=== PATIENT | male | born 1955 | race Caucasian/White ===

== ENCOUNTER → 2020-05-10 14:22 | Outpatient (BNVA) | payer BC, SELFPAY | PROVIDERS: Visit Provider Urology | DX: Z76.89 Persons encountering health services in other specified circumstances (principal) ==

== ENCOUNTER → 2020-08-08 15:37 | Outpatient (BNVA) | payer BC, SELFPAY | PROVIDERS: PCP Internal Medicine; Visit Provider Urology ==

== ENCOUNTER → 2021-02-15 14:27 | Outpatient (BNVA) | payer BC, SELFPAY | PROVIDERS: PCP Internal Medicine; Visit Provider Urology ==

== ENCOUNTER → 2021-05-15 14:41 | Outpatient (BNVA) | payer MEDICARE, SELFPAY | PROVIDERS: PCP Internal Medicine; Visit Provider Urology | DX: C61 Malignant neoplasm of prostate (principal) | CPT/HCPCS: Q3014 ==

== ENCOUNTER → 2021-08-20 13:05 | Outpatient (BNVA) | payer MEDICARE, SELFPAY | PROVIDERS: PCP Internal Medicine; Visit Provider Urology | DX: C61 Malignant neoplasm of prostate (principal); N20.0 Calculus of kidney | CPT/HCPCS: Q3014 ==

== ENCOUNTER → 2021-11-22 09:05 | Outpatient (BNVA) | payer MEDICARE, SELFPAY | PROVIDERS: PCP Internal Medicine; Visit Provider Urology | DX: C61 Malignant neoplasm of prostate (principal); Z87.442 Personal history of urinary calculi | CPT/HCPCS: 99212 ==

== ENCOUNTER → 2021-12-24 09:46 | Outpatient (BNVA) | payer MEDICARE, SELFPAY | PROVIDERS: PCP Internal Medicine; Visit Provider Urology | DX: C61 Malignant neoplasm of prostate (principal); N20.0 Calculus of kidney | CPT/HCPCS: Q3014 ==

== ENCOUNTER → 2021-12-25 13:55 | Outpatient (BNVA) | payer MEDICARE, SELFPAY | PROVIDERS: PCP Internal Medicine; Visit Provider Urology | DX: C61 Malignant neoplasm of prostate (principal) | CPT/HCPCS: 96402; J9217 ==

== ENCOUNTER → 2022-04-01 09:10 | Outpatient (BNVA) | payer MEDICARE, SELFPAY | PROVIDERS: PCP Internal Medicine; Visit Provider Urology | DX: C61 Malignant neoplasm of prostate (principal); R97.21 Rising PSA following treatment for malignant neoplasm of prostate | CPT/HCPCS: 51798; 99212 ==

== ENCOUNTER → 2022-07-03 10:10 | Outpatient (BNVA) | payer MEDICARE, SELFPAY | PROVIDERS: PCP Internal Medicine; Visit Provider Urology | DX: C61 Malignant neoplasm of prostate (principal); R97.21 Rising PSA following treatment for malignant neoplasm of prostate | CPT/HCPCS: Q3014 ==

== ENCOUNTER 2022-10-07 12:56 | Outpatient (AMB) | payer MEDICARE, SELFPAY ==
--- NOTE | 2022-10-07 13:01 | MHC.OFFVIS ---
Intake Intake Visit Reasons: 3M PSA/Testosterone(set) Intake Note: Patient is present for LABS Results: 09/23/22 PSA: <0.1 Testosterone: 32 Urology Med: Dutasteride Antibiotic Allergy: Penicillin G Blood Thinner: None Allergies penicillin G Allergy (Unknown, Verified 01/08/23 11:25) Unknown HPI HPI Comments History of Present Illness Details Marcelo is a very pleasant male. He is a patient of Dr. Espitia. He is seen for the following urologic conditions - prostate cancer - nephrolithiasis Lab work remains well controlled Completed salvage radiation with short-term hormones T is still recovering Continue PSA surveillance 10/14 PSA 0.1 T 32 Prostate cancer: Locally invasive, intermediate risk 07/13 RALP, PSA failure 12/2021 XRT with GnRH Rising PSA 01/13 GnRH with salvage XRT and dutasteride throughout radiation Imaging - 12/13 PMSA scan. Nodes but no disease within prostate bed Treatment 2000 Gy prostate bed, 4600 [facility] Continue evaluation pT3a pathology with micrometastatic node Genetic testing favorable - Polaris Able to get functional erection without medications. Prostate cancer was diagnosed Dr House 11/09 Diagnosis was reached by 11/09 needle biopsy, for elevated PSA, PSA at diagnosis 6.2, size at TRUS 75gm. The [place] grade is October 2017 4/12 cores positive - left base, left mid gland - 60% 4+3 = 7, 70% 3+4 = 7, 40% right apex , 3+3 = 6, 3+3 = 6. TNM Classification of Malignant Tumours (TNM) T1c - Intermediate risk, localized - Group 3 Surgical - [id number] Group 3. The D'Cara (NCCN) risk category is 11/09 , Intermediate Risk (PSA 10-20, Gl 7, T2), localized, Group 3 Initial therapy included 07/13 Primary treatment, Prostatectomy (RRP/Robotic) Dr Tamayo - [facility]. Recent labs included 03/11 , a PSA (prostate-specific antigen) 2.2 01/10 < 0.1, 05/12 < 0.1 07/14 < 0.1, 10/11 < 0.1, 01/11 < 0.1, 07/15 <0.1, 02/12 0.1, 05/14 0.2, 08/13 0.2, 11/13 0.3 Imaging - 12/13 PMSA scan. Nodes but no disease within prostate bed Nephrolithiasis/Urolithiasis: Stable No stones on imaging. They are here for further evaluation of nephrolithiasis Urolithiasis was diagnosed 2009 The patient previously had kidney stones whose composition w 08/10 left antegrade ureteroscopy with laser lithotripsy. Laboratory investigations include no recent labs 24 Hour urine evaluation none on file. Prior treatment(s) include 08/10 Antegrade Ureteroscopy. Prior imaging includes 09/10 , a renal ultrasound, showing no evidence of stones, bilateral cysts multiple sizes 08/11 , a renal ultrasound question small stone, bilateral renal cysts up to 5 cm PFSH Medical History Erectile dysfunction after radical prostatectomy High cholesterol Nocturia Prostate cancer Weak urinary stream Surgical History History of surgery Review of Systems Const Denies chills and Denies fever(s) Card Reports no additional complaints and Denies syncope Resp Denies cough GI Denies abdominal pain and Denies heartburn Reports as per HPI and Denies change in libido Neuro Denies syncope Psych Denies change in libido Endo Denies change in libido Physical Exam Const General: cooperative, healthy appearing, comfortable and no acute distress Orientation/consciousness: patient oriented x3 HEENT Face and sinus: Yes normal facial exam Mouth: moist mucous membranes Neck Neck: Yes normal visual inspection, Yes full ROM and Yes trachea midline Chest Chest palpation & inspection: normal inspection of the chest Resp Effort & Inspection: normal respiratory effort, able to speak in complete sentences and no respiratory distress GI Inspection: Yes normal to inspection Back/Spine/Pelvis Cervical Spine: normal cervical lordosis Thoracic/Lumbar Spine: thoracic and lumbar spine normal to inspection Skin General skin exam: no rashes or lesions noted Neuro General: patient oriented x3, gait normal, tone normal and moves all extremities Extrem General: Yes normal to inspection and Yes capillary refill normal Assessment & Plan Assessment & Plan (1) Rising PSA following treatment for malignant neoplasm of prostate: Code(s): R97.21 - Rising PSA following treatment for malignant neoplasm of prostate (2) Prostate cancer: Comment: Unfavorable intermediate. Initial therapy robotic prostatectomy 07/13 Code(s): C61 - Malignant neoplasm of prostate (3) Nephrolithiasis: Code(s): N20.0 - Calculus of kidney Plan Continue surveillance Orders: Orders Prostate Specific Antigen 3 Months R97.21 - Rising PSA following treatment for malignant neoplasm of prostate Testosterone, Total 3 Months R97.21 - Rising PSA following treatment for malignant neoplasm of prostate Patient Instructions: Imaging studies, laboratory and physical exam results were discussed and reviewed in detail. No major barriers to patient understanding were identified. An opportunity to ask questions regarding the treatment plan was provided. All questions were answered. The patient expressed understanding and agreement with the above treatment plan. The patient is aware they should contact our office by phone for worsening of their current condition or the appearance of new urologic symptoms. Compliance is encouraged with any medications and followup testing that is ordered. It is a privilege to participate in the urologic care of your patient. If you have any questions or concerns regarding treatment for the above conditions, or other urologic issues, please do not hesitate to contact me. The office telephone contact is [phone]. This note is constructed using voice recognition software. While every effort has been made to ensure accuracy web content & social media manager errors may have been included. Yours sincerely, Dr Bong House MD, [facility] - Urology Providers of Expert, Compassionate Care for the Genitourinary System Coding Level of Care Code Est Pt Level 3 (93804) Diagnoses Rising PSA following treatment for malignant neoplasm of prostate R97.21 Prostate cancer C61 Nephrolithiasis N20.0
== END 2022-10-07 13:47 | disposition home or self-care (01) ==
LOC: HO.HUSH 12:56
PROVIDERS: PCP Internal Medicine; Visit Provider Urology
DX: R97.21 Rising PSA following treatment for malignant neoplasm of prostate (principal); C61 Malignant neoplasm of prostate; N20.0 Calculus of kidney
CPT/HCPCS: 99213

== ENCOUNTER → 2022-10-07 12:56 | Outpatient (BNVA) | payer MEDICARE, SELFPAY | PROVIDERS: PCP Internal Medicine; Visit Provider Urology | DX: R97.21 Rising PSA following treatment for malignant neoplasm of prostate (principal); N20.0 Calculus of kidney; C61 Malignant neoplasm of prostate | CPT/HCPCS: 99212 ==

== ENCOUNTER 2023-01-08 11:24 | Outpatient (AMB) | payer MEDICARE, SELFPAY ==
--- NOTE | 2023-01-08 11:25 | A.OFFVIS_ITS ---
Intake Intake Visit Reasons: 3M PSA/Testo(SET) Intake Note: Patient is present for Telephone labs Urology Med: Dutasteride Antibiotic Allergy: Penicillin Blood Thinner: None Pharmacy: [facility] Allergies penicillin G Allergy (Unknown, Verified 01/08/23 11:25) Unknown Medication List - Last Reconciled 01/08/23 by Bong House MD amlodipine 5 mg PO DAILY dutasteride 0.5 mg PO DAILY 120 days lisinopril 10 mg PO DAILY simvastatin 20 mg PO BEDTIME HPI HPI Comments History of Present Illness Details Marcelo is a very pleasant male. He is a patient of Dr. Espitia. He is seen for the following urologic conditions - prostate cancer - nephrolithiasis Telemedicine Evaluation 15 min Consultation Doximity Cesar Video attempted PSA remains low. Testosterone fully recovered Continue with 4 month surveillance 10/14 PSA 0.1 T 32, 01/14 <0.1 T491 Prostate cancer: Locally invasive, intermediate risk 07/13 RALP - Early PSA failure 2021 XRT with GnRH Rising PSA 01/13 GnRH with salvage XRT and dutasteride throughout radiation Imaging - 12/13 PMSA scan. Nodes but no disease within prostate bed Treatment 2000 Gy prostate bed, 4600 Gy pelvis - Dr Rosetta David Continue evaluation pT3a pathology with micrometastatic node Genetic testing favorable - Polaris Able to get functional erection without medications. Prostate cancer was diagnosed Dr House 11/09 Diagnosis was reached by 11/09 needle biopsy, for elevated PSA, PSA at diagnosis 6.2, size at TRUS 75gm. The [place] grade is October 201709/03 cores positive - left base, left mid gland - 60% 4+3 = 7, 70% 3+4 = 7, 40% right apex , 3+3 = 6, 3+3 = 6. TNM Classification of Malignant Tumours (TNM) T1c - Intermediate risk, localized - Group 3 Surgical - [id number] Group 3. The D'Cara (NCCN) risk category is 11/09 , Intermediate Risk (PSA 10-20, Gl 7, T2), localized, Group 3. Initial therapy included 07/13 Primary treatment, Prostatectomy (RRP/Robotic) Dr Tamayo - [facility]. Recent labs included 03/11 , a PSA (prostate-specific antigen) 2.2 01/10 < 0.1, 05/12 < 0.1 07/14 < 0.1, 10/11 < 0.1, 01/11 < 0.1 - 07/15 <0.1, 02/12 0.1, 05/14 0.2, 08/13 0.2, 11/13 0.3 Imaging - 12/13 PMSA scan. Nodes but no disease within prostate bed Nephrolithiasis/Urolithiasis: Stable No stones on imaging. They are here for further evaluation of nephrolithiasis Urolithiasis was diagnosed 2009 The patient previously had kidney stones whose composition w 08/10 left antegrade ureteroscopy with laser lithotripsy. Laboratory investigations include no recent labs 24 Hour urine evaluation none on file. Prior treatment(s) include 08/10 Antegrade Ureteroscopy. Prior imaging includes 09/10 , a renal ultrasound, showing no evidence of stones, bilateral cysts multiple sizes 08/11 , a renal ultrasound question small stone, bilateral renal cysts up to 5 [facility] Medical History Erectile dysfunction after radical prostatectomy High cholesterol Nocturia Prostate cancer Weak urinary stream Surgical History History of surgery Review of Systems Const All systems reviewed & are unremarkable except as noted in HPI and below Reports no additional complaints Resp Reports no additional complaints GI Reports no additional complaints Reports as per HPI Musc Reports no additional complaints Physical Exam Telemedicine evaluation Appropriate responses Regular breathing rate and rhythm HEENT Head: Yes normal to inspection Ears: hearing grossly normal bilaterally Eyes General: appearance normal, both eyes and all related structures Neck Neck: Yes normal visual inspection Chest Chest palpation & inspection: normal inspection of the chest Resp Effort & Inspection: normal respiratory effort and able to speak in complete sentences Assessment & Plan Assessment & Plan (1) Prostate cancer: Comment: Unfavorable intermediate. Initial therapy robotic prostatectomy 07/13 Code(s): C61 - Malignant neoplasm of prostate Plan Four month follow-up PSA Orders: Orders Prostate Specific Antigen 4 Months C61 - Malignant neoplasm of prostate Patient Instructions: Imaging studies, laboratory and physical exam results were discussed and reviewed in detail. No major barriers to patient understanding were identified. An opportunity to ask questions regarding the treatment plan was provided. All questions were answered. The patient expressed understanding and agreement with the above treatment plan. The patient is aware they should contact our office by phone for worsening of their current condition or the appearance of new urologic symptoms. Compliance is encouraged with any medications and followup testing that is ordered. It is a privilege to participate in the urologic care of your patient. If you haile ve any questions or concerns regarding treatment for the above conditions, or other urologic issues, please do not hesitate to contact me. The office telephone contact is [phone]. This note is constructed using voice recognition software. While every effort has been made to ensure accuracy sweep press operator errors may have been included. Yours sincerely, Dr Bong House MD, [facility] - Urology Providers of Expert, Compassionate Care for the Genitourinary System Telehealth Telehealth Location of provider rendering services: practice address Location of patient: address on file Patient Identification confirmed using: Name, : Yes Telehealth method: voice only Patient verbally consented to treatment: Yes Patient verbally consented to billing insurance company: Yes Patient informed of any privacy concerns related to visit: Yes Coding Level of Care Code Tele Est Pt Level 3 (00204) Diagnoses Prostate cancer C61
== END 2023-01-08 13:47 | disposition home or self-care (01) ==
LOC: HO.HUSH 11:24
PROVIDERS: PCP Internal Medicine; Visit Provider Urology
DX: C61 Malignant neoplasm of prostate (principal)
CPT/HCPCS: 99442

== ENCOUNTER → 2023-01-08 11:24 | Outpatient (BNVA) | payer MEDICARE, SELFPAY | PROVIDERS: PCP Internal Medicine; Visit Provider Urology ==

== ENCOUNTER 2023-05-13 11:56 | Outpatient (AMB) | payer MEDICARE, SELFPAY ==
--- NOTE | 2023-05-13 11:58 | A.OFFVIS_ITS ---
Intake Intake Visit Reasons: 4m/PSA(SET) Intake Note: Patient is Present for Telephone Follow Up PSA Urology Med: Patient states he is no longer taking Dutasteride Antibiotic Allergy: Penicillin Blood Thinner: None Allergies penicillin G Allergy (Unknown, Verified 05/13/23 12:00) Unknown Medication List - Last Reconciled 05/13/23 by Bong House MD amlodipine 5 mg PO DAILY dutasteride 0.5 mg PO DAILY 120 days lisinopril 40 mg PO DAILY simvastatin 20 mg PO BEDTIME HPI HPI Comments History of Present Illness Details Marcelo is a very pleasant male. He is a patient of Dr. Espitia. He is seen for the following urologic conditions - prostate cancer - nephrolithiasis Telemedicine Evaluation 15 min Consultation Doximity Cesar Video attempted PSA remains low - different lab Continue with 3 month surveillance 10/14 PSA 0.1 T 32, 01/14 <0.1 T491, 05/16 <0.01 Prostate cancer: Locally invasive, intermediate risk 07/13 RALP - Early PSA failure 2021 XRT with GnRH Rising PSA 01/13 GnRH with salvage XRT and dutasteride throughout radiation Imaging - 12/13 PMSA scan. Nodes but no disease within prostate bed Treatment 2000 Gy prostate bed, [facility]00 [facility] Continue evaluation pT3a pathology with micrometastatic node Genetic testing favorable - Polaris Able to get functional erection without medications. Prostate cancer was diagnosed Dr House 11/09 Diagnosis was reached by 11/09 needle biopsy, for elevated PSA, PSA at diagnosis 6.2, size at TRUS 75gm. The [place] grade is October 201709/03 cores positive - left base, left mid gland - 60% 4+3 = 7, 70% 3+4 = 7, 40% right apex , 3+3 = 6, 3+3 = 6. TNM Classification of Malignant Tumours (TNM) T1c - Intermediate risk, localized - Group 3 Surgical - [id number] Group 3. The D'Cara (NCCN) risk category is 11/09 , Intermediate Risk (PSA 10-20, Gl 7, T2), localized, Group 3. Initial therapy included 07/13 Primary treatment, Prostatectomy (RRP/Robotic) Dr Tamayo - [facility]. Recent labs included 03/11 , a PSA (prostate-specific antigen) 2.2 01/10 < 0.1, 05/12 < 0.1 07/14 < 0.1, 10/11 < 0.1, 01/11 < 0.1 - 07/15 <0.1, 02/12 0.1, 05/14 0.2, 08/13 0.2, 11/13 0.3 Imaging - 12/13 PMSA scan. Nodes but no disease within prostate bed Nephrolithiasis/Urolithiasis: Stable No stones on imaging. They are here for further evaluation of nephrolithiasis Urolithiasis was diagnosed 2009 The patient previously had kidney stones whose composition w 08/10 left antegrade ureteroscopy with laser lithotripsy. Laboratory investigations include no recent labs 24 Hour urine evaluation none on file. Prior treatment(s) include 08/10 Antegrade Ureteroscopy. Prior imaging includes 09/10 , a renal ultrasound, showing no evidence of stones, bilateral cysts multiple sizes 08/11 , a renal ultrasound question small stone, bilateral renal cysts up to 5 cm PFSH Medical History Prostate cancer High cholesterol Erectile dysfunction after radical prostatectomy Nocturia Weak urinary stream Surgical History History of surgery Review of Systems Const All systems reviewed & are unremarkable except as noted in HPI and below Reports no additional complaints Resp Reports no additional complaints GI Reports no additional complaints Reports as per HPI Musc Reports no additional complaints Physical Exam Telemedicine evaluation Appropriate responses Regular breathing rate and rhythm HEENT Head: Yes normal to inspection Ears: hearing grossly normal bilaterally Eyes General: appearance normal, both eyes and all related structures Neck Neck: Yes normal visual inspection Chest Chest palpation & inspection: normal inspection of the chest Resp Effort & Inspection: normal respiratory effort and able to speak in complete sentences Assessment & Plan Assessment & Plan (1) Prostate cancer: Comment: Unfavorable intermediate. Initial therapy robotic prostatectomy 07/13 Code(s): C61 - Malignant neoplasm of prostate (2) Rising PSA following treatment for malignant neoplasm of prostate: Code(s): R97.21 - Rising PSA following treatment for malignant neoplasm of prostate Plan 3m f/u PSA Orders: Orders Prostate Specific Antigen 3 Months R97.21 - Rising PSA following treatment for malignant neoplasm of prostate Patient Instructions: Imaging studies, laboratory and physical exam results were discussed and reviewed in detail. No major barriers to patient understanding were identified. An opportunity to ask questions regarding the treatment plan was provided. All questions were answered. The patient expressed understanding and agreement with the above treatment plan. The patient is aware they should contact our office by phone for worsening of their current condition or the appearance of new urologic symptoms. Compliance is encouraged with any medications and followup testing that is ordered. It is a privilege to participate in the urologic care of your patient. If you have any questions or concerns regarding treatment for the above conditions, or other urologic issues, please do not hesitate to contact me. The office telephone contact is [phone]. This note is constructed using voice recognition software. While every effort has been made to ensure accuracy army officer errors may have been included. Yours sincerely, Dr Bong House MD, [facility] - Urology Providers of Expert, Compassionate Care for the Genitourinary System Telehealth Telehealth Location of provider rendering services: practice address Location of patient: address on file Patient Identification confirmed using: Name, : Yes Telehealth method: video Patient verbally consented to treatment: Yes Patient verbally consented to billing insurance company: Yes Patient informed of any privacy concerns related to visit: Yes Coding Level of Care Code Tele Est Pt Level 3 (90036) Diagnoses Prostate cancer C61 Rising PSA following treatment for malignant neoplasm of prostate R97.21
== END 2023-05-13 13:56 | disposition home or self-care (01) ==
LOC: HO.HUSH 11:56
PROVIDERS: PCP Internal Medicine; Visit Provider Urology
DX: C61 Malignant neoplasm of prostate (principal); R97.21 Rising PSA following treatment for malignant neoplasm of prostate
CPT/HCPCS: 99213

== ENCOUNTER → 2023-05-13 11:56 | Outpatient (BNVA) | payer MEDICARE, SELFPAY | PROVIDERS: PCP Internal Medicine; Visit Provider Urology ==

== ENCOUNTER 2023-08-11 14:18 | Outpatient (AMB) | payer MEDICARE, SELFPAY ==
--- NOTE | 2023-08-11 14:20 | MHC.OFFVIS ---
Intake Visit Reasons: 3m/PSA(set)Confirmed Intake Note: Patient is Present for Telephone Follow Up PSA Urology Med: Dutasteride Antibiotic Allergy: Penicillin Blood Thinner: None Allergies penicillin G Allergy (Unknown, Verified 08/11/23 14:21) Unknown HPI Comments Details: Marcelo is a very pleasant male. He is a patient of Dr. Espitia. He is seen for the following urologic conditions - prostate cancer - nephrolithiasis Telemedicine Evaluation 15 min Consultation Doximity Cesar Video PSA remains low - different lab Continue with 3 month surveillance for 2 years 10/14 PSA 0.1 T 32, 01/14 <0.1 T491, 05/16 <0.01, 08/15 <0.1 Prostate cancer: Locally invasive, intermediate risk 07/13 RALP - Early PSA failure 01/2022 XRT with GnRH Rising PSA 01/13- 02/13 GnRH with salvage XRT and dutasteride throughout radiation Imaging - 12/13 PMSA scan. Nodes but no disease within prostate bed Treatment 2000 Gy prostate bed, 4600 Gy pelvis - Dr Sargent [facility] [place] Continue evaluation pT3a pathology with micrometastatic node Genetic testing favorable - Polaris Able to get functional erection without medications. Prostate cancer was diagnosed Dr House 11/09 Diagnosis was reached by 11/09 needle biopsy, for elevated PSA, PSA at diagnosis 6.2, size at TRUS 75gm. The [place] grade is October 201709/03 cores positive - left base, left mid gland - 60% 4+3 = 7, 70% 3+4 = 7, 40% right apex , 3+3 = 6, 3+3 = 6. TNM Classification of Malignant Tumours (TNM) T1c - Intermediate risk, localized - Group 3 Surgical - [id number] Group 3. The D'Cara (NCCN) risk category is 11/09 , Intermediate Risk (PSA 10-20, Gl 7, T2), localized, Group 3. Initial therapy included 07/13 Primary treatment, Prostatectomy (RRP/Robotic) Dr Tamayo - [facility]. Recent labs included 03/11 , a PSA (prostate-specific antigen) 2.2 01/10 < 0.1, 05/12 < 0.1 07/14 < 0.1, 10/11 < 0.1, 01/11 < 0.1 - 07/15 <0.1, 02/12 0.1, 05/14 0.2, 08/13 0.2, 11/13 0.3 Imaging - 12/13 PMSA scan. Nodes but no disease within prostate bed Nephrolithiasis/Urolithiasis: Stable No stones on imaging. They are here for further evaluation of nephrolithiasis Urolithiasis was diagnosed 2009 The patient previously had kidney stones whose composition w 08/10 left antegrade ureteroscopy with laser lithotripsy. Laboratory investigations include no recent labs 24 Hour urine evaluation none on file. Prior treatment(s) include 08/10 Antegrade Ureteroscopy. Prior imaging includes 09/10 , a renal ultrasound, showing no evidence of stones, bilateral cysts multiple sizes 08/11 , a renal ultrasound question small stone, bilateral renal cysts up to 5 cm PFS Medical History Prostate cancer High cholesterol Erectile dysfunction after radical prostatectomy Nocturia Weak urinary stream Surgical History History of surgery Review of Systems Const All systems reviewed & are unremarkable except as noted in HPI and below Reports no additional complaints Resp Reports no additional complaints GI Reports no additional complaints Reports as per HPI Musc Reports no additional complaints Physical Exam Telemedicine evaluation Appropriate responses Regular breathing rate and rhythm HEENT Head: Yes normal to inspection Ears: hearing grossly normal bilaterally Eyes General: appearance normal, both eyes and all related structures Neck Neck: Yes normal visual inspection Chest Chest palpation & inspection: normal inspection of the chest Resp Effort & Inspection: normal respiratory effort and able to speak in complete sentences Telehealth Telehealth Location of provider rendering services: practice address Location of patient: address on file Patient Identification confirmed using: Name, : Yes Telehealth method: video Patient verbally consented to treatment: Yes Patient verbally consented to billing insurance company: Yes Patient informed of any privacy concerns related to visit: Yes Minutes spent on Phone/Video with Pt.: 15 Assessment & Plan Assessment & Plan (1) Prostate cancer: Comment: Unfavorable intermediate. Initial therapy robotic prostatectomy 07/13 Code(s): C61 - Malignant neoplasm of prostate Category: Medical (2) Rising PSA following treatment for malignant neoplasm of prostate: Code(s): R97.21 - Rising PSA following treatment for malignant neoplasm of prostate Category: Medical Plan Three month follow-up PSA Orders: Orders Prostate Specific Antigen 3 Months C61 - Malignant neoplasm of prostate Patient Instructions: Imaging studies, laboratory and physical exam results were discussed and reviewed in detail. No major barriers to patient understanding were identified. An opportunity to ask questions regarding the treatment plan was provided. All questions were answered. The patient expressed understanding and agreement with the above treatment plan. The patient is aware they should contact our office by phone for worsening of their current condition or the appearance of new urologic symptoms. Compliance is encouraged with any medications and followup testing that is ordered. It is a privilege to participate in the urologic care of your patient. If you have any questions or concerns regarding treatment for the above conditions, or other urologic issues, please do not hesitate to contact me. The office telephone contact is [phone]. This note is constructed using voice recognition software. While every effort has been made to ensure accuracy pharmacy manager errors may have been included. Yours sincerely, Dr Bong House MD, [facility] - Urology Providers of Expert, Compassionate Care for the Genitourinary System
== END 2023-08-11 15:30 | disposition home or self-care (01) ==
LOC: HO.HUSH 14:18
PROVIDERS: PCP Internal Medicine; Visit Provider Urology
DX: C61 Malignant neoplasm of prostate (principal); R97.21 Rising PSA following treatment for malignant neoplasm of prostate
CPT/HCPCS: 99213

== ENCOUNTER → 2023-08-11 14:18 | Outpatient (BNVA) | payer MEDICARE, SELFPAY | PROVIDERS: PCP Internal Medicine; Visit Provider Urology ==

== ENCOUNTER 2023-11-13 13:27 | Outpatient (AMB) | payer MEDICARE, SELFPAY ==
--- NOTE | 2023-11-13 13:44 | A.OFFVIS_ITS ---
Intake Visit Reasons: 3m/PSA(set) Intake Note: Pt presents to the office today for a 3 month/ PSA follow up. Urology Meds: Dutasteride Blood thinners: None Allergies penicillin G Allergy (Unknown, Verified 11/13/23 13:44) Unknown HPI Comments Details: Marcelo is a very pleasant male. He is a patient of Dr. Espitia. He is seen for the following urologic conditions - prostate cancer - nephrolithiasis PSA remains low Back from [place] Three-month follow-up then can moved every 6 months 10/14 PSA 0.1 T 32, 01/14 <0.1 T491, 05/16 <0.01, 08/15 <0.1, 11/15 <0.1 Prostate cancer: Locally invasive, intermediate risk 07/13 RALP - Early PSA failure 01/2022 XRT with GnRH Rising PSA 01/13- 02/13 GnRH with salvage XRT and dutasteride throughout radiation Imaging - 12/13 PMSA scan. Nodes but no disease within prostate bed Treatment 2000 Gy prostate bed, 4600 Gy pelvis - Dr Sargent [facility] Continue evaluation pT3a pathology with micrometastatic node Genetic testing favorable - Polaris Able to get functional erection without medications. Prostate cancer was diagnosed Dr House 11/09 Diagnosis was reached by 11/09 needle biopsy, for elevated PSA, PSA at diagnosis 6.2, size at TRUS 75gm. The [place] grade is October 2017 4/12 cores positive - left base, left mid gland - 60% 4+3 = 7, 70% 3+4 = 7, 40% right apex , 3+3 = 6, 3+3 = 6. TNM Classification of Malignant Tumours (TNM) T1c - Intermediate risk, localized - Group 3 Surgical - [id number] Group 3. The D'Cara (NCCN) risk category is 11/09 , Intermediate Risk (PSA 10-20, Gl 7, T2), localized, Group 3. Initial therapy included 07/13 Primary treatment, Prostatectomy (RRP/Robotic) Dr Tamayo - [facility]. Recent labs included 03/11 , a PSA (prostate-specific antigen) 2.2 01/10 < 0.1, 05/12 < 0.1 07/14 < 0.1, 10/11 < 0.1, 01/11 < 0.1 - 07/15 <0.1, 02/12 0.1, 05/14 0.2, 08/13 0.2, 11/13 0.3 Imaging - 12/13 PMSA scan. Nodes but no disease within prostate bed Nephrolithiasis/Urolithiasis: Stable No stones on imaging. They are here for further evaluation of nephrolithiasis Urolithiasis was diagnosed 2009 The patient previously had kidney stones whose composition w 08/10 left antegrade ureteroscopy with laser lithotripsy. Laboratory investigations include no recent labs 24 Hour urine evaluation none on file. Prior treatment(s) include 08/10 Antegrade Ureteroscopy. Prior imaging includes 09/10 , a renal ultrasound, showing no evidence of stones, bilateral cysts multiple sizes 08/11 , a renal ultrasound question small stone, bilateral renal cysts up to 5 cm PFSH Medical History Prostate cancer High cholesterol Erectile dysfunction after radical prostatectomy Nocturia Weak urinary stream Surgical History History of surgery Review of Systems Const Denies chills and Denies fever(s) Card Reports no additional complaints and Denies syncope Resp Denies cough GI Denies abdominal pain and Denies heartburn Reports as per HPI and Denies change in libido Neuro Denies syncope Psych Denies change in libido Endo Denies change in libido Physical Exam Const General: cooperative, healthy appearing, comfortable and no acute distress Orientation/consciousness: patient oriented x3 HEENT Face and sinus: Yes normal facial exam Mouth: moist mucous membranes Neck Neck: Yes normal visual inspection, Yes full ROM and Yes trachea midline Chest Chest palpation & inspection: normal inspection of the chest Resp Effort & Inspection: normal respiratory effort, able to speak in complete sentences and no respiratory distress GI Inspection: Yes normal to inspection Back/Spine/Pelvis Cervical Spine: normal cervical lordosis Thoracic/Lumbar Spine: thoracic and lumbar spine normal to inspection Skin General skin exam: no rashes or lesions noted Neuro General: patient oriented x3, gait normal, tone normal and moves all extremities Extrem General: Yes normal to inspection and Yes capillary refill normal Assessment & Plan Assessment & Plan (1) Prostate cancer: Comment: Unfavorable intermediate. Initial therapy robotic prostatectomy 07/13 Code(s): C61 - Malignant neoplasm of prostate Category: Medical (2) Nephrolithiasis: Code(s): N20.0 - Calculus of kidney Category: Medical (3) Rising PSA following treatment for malignant neoplasm of prostate: Code(s): R97.21 - Rising PSA following treatment for malignant neoplasm of prostate Category: Medical Plan Three-month follow-up PSA Orders: Orders Prostate Specific Antigen 3 Months C61 - Malignant neoplasm of prostate Patient Instructions: Imaging studies, laboratory and physical exam results were discussed and reviewed in detail. No major barriers to patient understanding were identified. An opportunity to ask questions regarding the treatment plan was provided. All questions were answered. The patient expressed understanding and agreement with the above treatment plan. The patient is aware they should contact our office by phone for worsening of their current condition or the appearance of new urologic symptoms. Compliance is encouraged with any medications and followup testing that is ordered. It is a privilege to participate in the urologic care of your patient. If you have any questions or concerns regarding treatment for the above conditions, or other urologic issues, please do not hesitate to contact me. The office telephone contact is [phone]. This note is constructed using voice recognition software. While every effort has been made to ensure accuracy manager hvac errors may have been included. Yours sincerely, Dr Bong House MD, [facility] - Urology Providers of Expert, Compassionate Care for the Genitourinary System Coding Level of Care Code Est Pt Level 3 (45533) Diagnoses Prostate cancer C61 Nephrolithiasis N20.0 Rising PSA following treatment for malignant neoplasm of prostate R97.21
== END 2023-11-13 14:56 | disposition home or self-care (01) ==
PROVIDERS: PCP Internal Medicine; Visit Provider Urology
DX: C61 Malignant neoplasm of prostate (principal); N20.0 Calculus of kidney; R97.21 Rising PSA following treatment for malignant neoplasm of prostate
CPT/HCPCS: 99213

== ENCOUNTER → 2023-11-13 13:27 | Outpatient (BNVA) | payer MEDICARE, SELFPAY | PROVIDERS: PCP Internal Medicine; Visit Provider Urology | DX: C61 Malignant neoplasm of prostate (principal); N20.0 Calculus of kidney; R97.21 Rising PSA following treatment for malignant neoplasm of prostate | CPT/HCPCS: 99212 ==

== ENCOUNTER 2024-02-03 09:17 | Outpatient (AMB) | payer MEDICARE, SELFPAY ==
--- NOTE | 2024-02-03 09:19 | A.OFFVIS_ITS ---
Intake Visit Reasons: 3m follow up-PSA(set) Intake Note: Patient is Present for Follow Up PSA Urology Medication: None Antibiotic Allergies: Penicillin Blood Thinners:None Patient reports new diagnosis Borderline Type 2 Diabetes New medications was prescribed Patient reports that he would like Dr to order imaging to monitor his Kidney cysts no pain Recent PSA- 01/28/24 <0.1 Slot Supervisor Required: No Accompanied by: Self / Same As Patient Allergies penicillin G Allergy (Unknown, Verified 02/03/24 09:27) Unknown Medication List - Last Reconciled 02/03/24 by Bong House MD amlodipine 10 mg PO DAILY atorvastatin 20 mg PO DAILY chlorthalidone 25 mg PO DAILY dutasteride 0.5 mg PO DAILY 120 days lisinopril 40 mg PO DAILY metformin ER 500 mg PO DAILY HPI Comments Details: Marcelo is a very pleasant male. He is a patient of Dr. Espitia. He is seen for the following urologic conditions - prostate cancer - nephrolithiasis PSA remains low Now on six-month follow-up Plan renal ultrasound next visit Both his sons are expecting children and next 6 months. Both IVF. 10/14 PSA 0.1 T 32, 01/14 <0.1 T491, 05/16 <0.01, 08/15 <0.1, 11/15 <0.1, 02/15 <0.1 Prostate cancer: Locally invasive, intermediate risk 07/13 RALP - Early PSA failure 01/2022 XRT with GnRH Rising PSA 01/13- 02/13 GnRH with salvage XRT and dutasteride throughout radiation Imaging - 12/13 PMSA scan. Nodes but no disease within prostate bed Treatment 2000 Gy prostate bed, 4600 [facility] Continue evaluation pT3a pathology with micrometastatic node Genetic testing favorable - Polaris Able to get functional erection without medications. Prostate cancer was diagnosed Dr House 11/09 Diagnosis was reached by 11/09 needle biopsy, for elevated PSA, PSA at diagnosis 6.2, size at TRUS 75gm. The [place] grade is October 2017 4/12 cores positive - left base, left mid gland - 60% 4+3 = 7, 70% 3+4 = 7, 40% right apex , 3+3 = 6, 3+3 = 6. TNM Classification of Malignant Tumours (TNM) T1c - Intermediate risk, localized - Group 3 Surgical - [id number] Group 3. The D'Cara (NCCN) risk category is 11/09 , Intermediate Risk (PSA 10-20, Gl 7, T2), localized, Group 3. Initial therapy included 07/13 Primary treatment, Prostatectomy (RRP/Robotic) Dr Tamayo [facility]. Recent labs included 03/11 , a PSA (prostate-specific antigen) 2.2 01/10 < 0.1, 05/12 < 0.1 07/14 < 0.1, 10/11 < 0.1, 01/11 < 0.1 - 07/15 <0.1, 02/12 0.1, 05/14 0.2, 08/13 0.2, 11/13 0.3 Imaging - 12/13 PMSA scan. Nodes but no disease within prostate bed Nephrolithiasis/Urolithiasis: Stable No stones on imaging. They are here for further evaluation of nephrolithiasis Urolithiasis was diagnosed 2009 The patient previously had kidney stones whose composition w 08/10 left antegrade ureteroscopy with laser lithotripsy. Laboratory investigations include no recent labs 24 Hour urine evaluation none on file. Prior treatment(s) include 08/10 Antegrade Ureteroscopy. Prior imaging includes 09/10 , a renal ultrasound, showing no evidence of stones, bilateral cysts multiple sizes 08/11 , a renal ultrasound question small stone, bilateral renal cysts up to 5 cm PFSH Medical History Prostate cancer High cholesterol Erectile dysfunction after radical prostatectomy Nocturia Weak urinary stream Surgical History History of surgery Review of Systems Const Denies chills and Denies fever(s) Card Reports no additional complaints and Denies syncope Resp Denies cough GI Denies abdominal pain and Denies heartburn Reports as per HPI and Denies change in libido Neuro Denies syncope Psych Denies change in libido Endo Denies change in libido Physical Exam Const General: cooperative, healthy appearing, comfortable and no acute distress Orientation/consciousness: patient oriented x3 HEENT Face and sinus: Yes normal facial exam Mouth: moist mucous membranes Neck Neck: Yes normal visual inspection, Yes full ROM and Yes trachea midline Chest Chest palpation & inspection: normal inspection of the chest Resp Effort & Inspection: normal respiratory effort, able to speak in complete sentences and no respiratory distress GI Inspection: Yes normal to inspection Back/Spine/Pelvis Cervical Spine: normal cervical lordosis Thoracic/Lumbar Spine: thoracic and lumbar spine normal to inspection Skin General skin exam: no rashes or lesions noted Neuro General: patient oriented x3, gait normal, tone normal and moves all extremities Extrem General: Yes normal to inspection and Yes capillary refill normal Assessment & Plan Assessment & Plan (1) Nephrolithiasis: Code(s): N20.0 - Calculus of kidney Category: Medical (2) Prostate cancer: Comment: Unfavorable intermediate. Initial therapy robotic prostatectomy 07/13 Code(s): C61 - Malignant neoplasm of prostate Category: Medical Plan Renal ultrasound today Six-month follow-up PSA tele Orders: Orders Prostate Specific Antigen 6 Months C61 - Malignant neoplasm of prostate US renal BI Today N20.0 - Calculus of kidney Patient Instructions: Imaging studies, laboratory and physical exam results were discussed and reviewed in detail. No major barriers to patient understanding were identified. An opportunity to ask questions regarding the treatment plan was provided. All questions were answered. The patient expressed understanding and agreement with the above treatment plan. The patient is aware they should contact our office by phone for worsening of their current condition or the appearance of new urologic symptoms. Compliance is encouraged with any medications and followup testing that is ordered. It is a privilege to participate in the urologic care of your patient. If you have any questions or concerns regarding treatment for the above conditions, or other urologic issues, please do not hesitate to contact me. The office telephone contact is [phone]. This note is constructed using voice recognition software. While every effort has been made to ensure accuracy center human resources manager errors may have been included. Yours sincerely, Dr Bong House MD, [facility] - Urology Providers of Expert, Compassionate Care for the Genitourinary System Coding Level of Care Code Est Pt Level 3 (75960) Diagnoses Nephrolithiasis N20.0 Prostate cancer C61
== END 2024-02-03 10:10 | disposition home or self-care (01) ==
PROVIDERS: PCP Internal Medicine; Visit Provider Urology
DX: N20.0 Calculus of kidney (principal); C61 Malignant neoplasm of prostate
CPT/HCPCS: 99213

== ENCOUNTER → 2024-02-03 09:17 | Outpatient (BNVA) | payer MEDICARE, SELFPAY | PROVIDERS: PCP Internal Medicine; Visit Provider Urology | DX: C61 Malignant neoplasm of prostate (principal); N20.0 Calculus of kidney | CPT/HCPCS: 99212 ==

== ENCOUNTER 2024-02-26 09:01 | Outpatient (REF) | payer MEDICARE, SELFPAY ==
--- NOTE | ~2024-02-26 | US_ITS ---
EXAMINATION: US RETROPERITONEAL LIMITED (RENAL ONLY) CLINICAL INFORMATION: Calculus of kidney. COMPARISON: Renal ultrasound 09/14/2020 and 07/18/2019. CT abdomen and pelvis 07/22/2018. MRI abdomen 02/09/2018. TECHNIQUE: Real-time imaging of the kidneys. FINDINGS: RIGHT KIDNEY: 13.2 x 6.5 x 6.5 cm (SAG x AP x TRV). The kidney is normal in size, contour, and echogenicity. Renal cortical thickness is normal. There is a [id number] pole 3 mm echogenic focus with twinkle artifact consistent with a nonobstructing calculus. There is no hydronephrosis. Multiple benign Bosniak class I renal cysts are noted, the largest measuring 2.9 cm. There is a single cyst at the lower pole with a small focus of calcification in its wall consistent with a Bosniak class II cyst. None of these require no additional imaging or follow-up. No solid renal masses are seen. LEFT KIDNEY: 14.1 x 5.5 x 5.5 cm (SAG x AP x TRV). The kidney is normal in size, contour, and echogenicity. Renal cortical thickness is normal. No renal calculi or hydronephrosis. Multiple benign Bosniak class I renal cysts along with a single septated 7.3 cm Bosniak class II cyst are noted which require no additional imaging or follow-up. No solid renal masses are seen. US/US renal BI IMPRESSION: 1. Nonobstructing 3 mm right renal calculus. 2. Bilateral benign Bosniak class I and Bosniak class II renal cysts which require no additional imaging or follow-up. Electronically signed by: Kenan Hairston MD 04/28/2024 12:04 AM JULIET
== END 2024-02-26 09:02 | disposition home or self-care (01) ==
LOC: HO.US 09:01
PROVIDERS: PCP Internal Medicine; Visit Provider Urology
DX: N20.0 Calculus of kidney (principal)
CPT/HCPCS: 76775

== ENCOUNTER 2024-08-30 11:18 | Outpatient (AMB) | payer MEDICARE, SELFPAY ==
--- NOTE | 2024-08-30 10:49 | MHC.OFFVIS ---
Intake Visit Reasons: 6m/PSA(psa?) Intake Note: Patient is present for M/PSA Urology Medication:NONE Antibiotic Allergy:PENICILLIN Blood Thinner:NONE Research Methods Instructor Required: No Allergies penicillin G Allergy (Unknown, Verified 08/30/24 10:50) Unknown HPI Comments Details: Marcelo is a very pleasant male. He is a patient of Dr. Espitia. He is seen for the following urologic conditions - prostate cancer - nephrolithiasis Telemedicine Evaluation 15 min Consultation [employer] Video PSA remains low Now on six-month follow-up Plan renal ultrasound next visit Both his sons are expecting children and next 6 months. Both IVF. 10/14 PSA 0.1 T 32, 01/14 <0.1 T491, 05/16 <0.01, 08/15 <0.1, 11/15 <0.1, 02/15 <0.1, 08/16 < 0.1 Prostate cancer: Locally invasive, intermediate risk 07/13 RALP - Early PSA failure 01/2022 XRT with GnRH Rising PSA 01/13- 02/13 GnRH with salvage XRT and dutasteride throughout radiation Imaging - 12/13 PMSA scan. Nodes but no disease within prostate bed Treatment 2000 Gy prostate bed, 4600 Gy pelvis - Dr Sargent [facility] Continue evaluation pT3a pathology with micrometastatic node Genetic testing favorable - Polaris Able to get functional erection without medications. Prostate cancer was diagnosed Dr House 11/09 Diagnosis was reached by 11/09 needle biopsy, for elevated PSA, PSA at diagnosis 6.2, size at TRUS 75gm. The [place] grade is October 2017 4 cores positive - left base, left mid gland - 60% 4+3 = 7, 70% 3+4 = 7, 40% right apex , 3+3 = 6, 3+3 = 6. TNM Classification of Malignant Tumours (TNM) T1c - Intermediate risk, localized - Group 3 Surgical - [id number] Group 3. The D'Cara (NCCN) risk category is 11/09 , Intermediate Risk (PSA 10-20, Gl 7, T2), localized, Group 3. Initial therapy included 07/13 Primary treatment, Prostatectomy (RRP/Robotic) Dr Tamayo - [facility]. Recent labs included 03/11 , a PSA (prostate-specific antigen) 2.2 01/10 < 0.1, 05/12 < 0.1 07/14 < 0.1, 10/11 < 0.1, 01/11 < 0.1 - 07/15 <0.1, 02/12 0.1, 05/14 0.2, 08/13 0.2, 11/13 0.3 Imaging - 12/13 PMSA scan. Nodes but no disease within prostate bed Nephrolithiasis/Urolithiasis: Stable No stones on imaging. They are here for further evaluation of nephrolithiasis Urolithiasis was diagnosed 2009 The patient previously had kidney stones whose composition w 08/10 left antegrade ureteroscopy with laser lithotripsy. Laboratory investigations include no recent labs 24 Hour urine evaluation none on file. Prior treatment(s) include 08/10 Antegrade Ureteroscopy. Prior imaging includes 09/10 , a renal ultrasound, showing no evidence of stones, bilateral cysts multiple sizes - 08/11 , a renal ultrasound question small stone, bilateral renal cysts up to 5 cm - 03/17 - renal US 3mm right PFSH Medical History Prostate cancer High cholesterol Erectile dysfunction after radical prostatectomy Nocturia Weak urinary stream Surgical History History of surgery Review of Systems Const All systems reviewed & are unremarkable except as noted in HPI and below Reports no additional complaints Resp Reports no additional complaints GI Reports no additional complaints Reports as per HPI Musc Reports no additional complaints Physical Exam Telemedicine evaluation Appropriate responses Regular breathing rate and rhythm HEENT Head: Yes normal to inspection Ears: hearing grossly normal bilaterally Eyes General: appearance normal, both eyes and all related structures Neck Neck: Yes normal visual inspection Chest Chest palpation & inspection: normal inspection of the chest Resp Effort & Inspection: normal respiratory effort and able to speak in complete sentences Telehealth Telehealth Telehealth Platform: [facility] Location of provider rendering services: practice address Location of patient: address on file Patient Identification confirmed using: Name, : Yes Telehealth method: video Patient verbally consented to treatment: Yes Patient verbally consented to billing insurance company: Yes Patient informed of any privacy concerns related to visit: Yes Minutes spent on Phone/Video with Pt.: 15 Assessment & Plan Assessment & Plan (1) Prostate cancer: Comment: Unfavorable intermediate. Initial therapy robotic prostatectomy 07/13 Code(s): C61 - Malignant neoplasm of prostate Category: Medical (2) Nephrolithiasis: Code(s): N20.0 - Calculus of kidney Category: Medical Plan Continue six-month follow-up PSA Orders: Orders Prostate Specific Antigen 6 Months C61 - Malignant neoplasm of prostate Patient Instructions: This note is constructed using voice recognition software. While every effort has been made to ensure accuracy flexo folder gluer operator errors may have been included. Imaging studies, laboratory and physical exam results were discussed and reviewed in detail. No major barriers to patient understanding were identified. An opportunity to ask questions regarding the treatment plan was provided. All questions were answered. The patient expressed understanding and agreement with the above treatment plan. The patient is aware they should contact our office by phone for worsening of their current condition or the appearance of new urologic symptoms. Compliance is encouraged with any medications and followup testing that is ordered. It is a privilege to participate in the urologic care of your patient. If you have any questions or concerns regarding treatment for the above conditions, or other urologic issues, please do not hesitate to contact me. The office telephone contact is [phone]. Sincerely, Dr Bong House MD, [facility] - Urology Compassionate Specialist Care for the Genitourinary System Coding Level of Care Code Tele Est Pt Level 3 (41508) Complex EM visit Add On G2211 Diagnoses Prostate cancer C61 Nephrolithiasis N20.0
--- OUTSIDE RECORDS SUMMARY | 2024-08-30 13:52 | XMS_ITS | Encounter Summary ---
Author Organization [facility] Address [address] [place] [id number] Care Team Providers Care Games Manager Name Role Phone Valeriano Ortiz MD Primary Care Provider [phone] Encounter Details Date Type Department Care Team (Late st Contact Info) Description 08/16/2018 Scanned Document GENERIC EXTERNAL DATA DEPARTMENT Provider, Lindsey, [address] [place] [address] Social History Tobacco Use Types Packs/Day Years Used Date Smoking Tobacco: Never Smokeless Tobacco: Never Alcohol Use Standard Drinks/Week Comments Yes 0 (1 standard drink = 0.6 oz pur e alcohol) once a month a beer or wine. Sex and Gender Information Value Date Recorded Sex Assigned at Not on file Gender Identity Not on file Sexual Orientation Not on file documented as of this encounter Plan of Treatment Not on file documented as of this encounter Visit Diagnoses Not on filedocumented in this encounter Care Teams Games Manager Relationship Specialty Start Date End Date Valeriano Ortiz MD [address] [place] [id number] PCP - General Internal Medicine 04/21/18 documented as of this encounter
--- OUTSIDE RECORDS SUMMARY | 2024-08-30 13:52 | XMS_ITS | Encounter Summary ---
Author Organization [facility] Address [address] [place] [address] Care Team Providers Care Council Member Name Role Phone Valeriano Ortiz MD Primary Care Provider [phone] Encounter Details Date Type Department Care Team (Late st Contact Info) Description 06/02/2018 Prep for Surgery [address] [phone] Jorge Tamayo MD [address] [place] [id number] Social History Tobacco Use Types Packs/Day Years [...] on filedocumented in this encounter Care Teams Council Member Relationship Specialty Start Date End Date Valeriano Ortiz MD [address] [place] [id number] PCP - General Internal Medicine 04/21/18 documented as of this encounter
--- OUTSIDE RECORDS SUMMARY | 2024-08-30 13:52 | XMS_ITS | Clinical Summary ---
Author Organization [facility] Address [address] [place] [address] Care Team Providers Care Global Program Manager Name Role Phone Valeriano Ortiz MD Primary Care Provider [phone] Allergies Active Allergy Reactions Criticality Noted Date Comments Penicillins Hives Medium 04/21/2018 Medications Medication Sig Dispensed Refills Start Date End Date Status simvastatin (ZOCOR) 20 MG tablet Take 20 mg by mouth nightly. Active kxeuckmvbzlx-gizf-t inerals-folic acid (CENTRUM) chewable tablet Chew 1 tablet daily. Active amLODIPine (NORVASC) 5 MG tablet Take 5 mg by mouth daily. Active sildenafil (REVATIO) 20 MG tabletIndications:H istory of prostate cancer Take 2 pills by mouth at bedtime, may take an additional 1-3 tables 1 hour prior to sexual activity. Not to exceed 5 tabs in 24 hours. 90 tablet 11 07/01/2018 Active lisinopril (PRINIVIL,ZeSTRIL) 5 MG tablet Take 5 mg by mouth daily. 0 10/12/2018 Active Active Problems No known active problems Resolved Problems Problem Noted Date Diagnosed Date Resolved Date Prostate CA 06/04/2018 06/13/2018 Family History Medical History Relation Name Comments Cancer, Prostate Cousin Cancer, Prostate Paternal Uncle Relation Name Status Comments Cousin Father Mother Alive Paternal Uncle Social History Tobacco Use Types Packs/Day Years Used Date Smoking Tobacco: Never Smokeless Tobacco: Never Tobacco Cessation:Counseling Given: Not Answered Alcohol Use Standard Drinks/Week Comments Yes 0 (1 standard drink = 0.6 oz pur e alcohol) once a month a beer or wine. Sex and Gender Information Value Date Recorded Sex Assigned at Not on file Gender Identity Not on file Sexual Orientation Not on file Last Filed Vital Signs Vital Sign Reading Time Taken Comments Blood Pressure 148/90 10/25/2022 9:29 AM EDT Pulse 76 10/25/2022 9:29 AM EDT Temperature 36.3 ??C (97.3 ??F) 10/25/2022 9:29 AM ED T Respiratory Rate 16 10/25/2022 9:29 AM EDT Oxygen Saturation 96% 10/25/2022 9:29 AM EDT Inhaled Oxygen Concentration - - Weight 116 kg (255 lb) 10/25/2022 9:29 AM EDT Height 188 cm (6' 2 ) 10/25/2022 9:29 AM EDT Body Mass Index 32.74 10/25/2022 9:29 AM EDT Plan of Treatment Health Maintenance Due Date Last Done Comments Hepatitis C Virus Screening 1955 DTaP/Tdap/Td Vaccines (1 - Tdap) 1972 Colonoscopy 1998 Pneumococcal Vaccines 50+ (1 of 1 - PCV) 10/31/2003 Zoster (Shingles) Vaccine (1 of 2) 10/31/2003 Influenza Vaccine 12/24/2023 02/12/2018, , 01/31/2015, Additional history exists COVID-19 Vaccine ( season) 2024 09/05/2021, 03/04/2021 RSV Vaccine 60 years and older and Patients (1 - 1-dose 75+ series) 2028 Hepatitis B Vaccines Aged Out No long er eligible based on patient's age to complete this topic Advance Directives * Full Code (Latest Code Status on File) Date Activated Date Inactivated Comments 06/04/2018 7:44 PM * Full Code Date Activated Date Inactivated Comments 06/04/2018 9:39 AM 06/04/2018 7:44 PM Care Teams Global Program Manager Relationship Specialty Start Date End Date Valeriano Ortiz MD [address] [place] [id number] PCP - General Internal Medicine 04/21/18
--- OUTSIDE RECORDS SUMMARY | 2024-08-30 13:52 | XMS_ITS | Encounter Summary ---
Author Organization [facility] Address [address] [place], [place] [id number] Care Team Providers Care Core Baker Name Role Phone Valeriano Ortiz MD Primary Care Provider [phone] Encounter Details Date Type Department Care Team (Late st Contact Info) Description 08/11/[address] [facility] Urologic Surgery [place] [address] [place] [address] Lisa Frias, WHIPPER [address] [address] Social History Tobacco Use Types Packs/Day Years [...] on file documented as of this encounter Miscellaneous Notes * Telephone Encounter - Polo Zuluaga - 08/19/2018 10:42 AM EDT Patient calling back to find out when his follow up will be. He can be reached back @ [phone]. Thank you. * Telephone Encounter - Nicole Maradiaga - 08/11/2018 4:04 PM EDT Rescheduling needed for this pt with lisa frias and importer exporter I asked front end specialist they said to send it to you because they weren't sure when she will be doing clinical on mondays again. Please call back Thank you Edward [phone] documented in this encounter Plan of Treatment Not on file documented as of this encounter Visit Diagnoses Not on filedocumented in this encounter Care Teams Core Baker Relationship Specialty Start Date End Date Valeriano Ortiz MD [address] [place] [address] PCP - General Internal Medicine 04/21/18 documented as of this encounter
--- OUTSIDE RECORDS SUMMARY | 2024-08-30 13:52 | XMS_ITS | Encounter Summary ---
Author Organization [facility] Address [address] [place] [id number] Care Team Providers Care Water System Operator Name Role Phone Valeriano Ortiz MD Primary Care Provider [phone] Encounter Details Date Type Department Care Team (Late st Contact Info) Description 07/20/2018 Telephone [facility] Urologic Surgery [place] [address] [phone] Jorge Tamayo MD [address] [address] Social History Tobacco Use Types Packs/Day Years [...] encounter Miscellaneous Notes * Telephone Encounter - Krysta Taveras - 07/20/2018 9:56 AM EST Patient phon documented in this encounter Plan of Treatment Not on file documented as of this encounter Visit Diagnoses Not on filedocumented in this encounter Care Teams Water System Operator Relationship Specialty Start Date End Date Valeriano Ortiz MD [address] [place] [address] [address] [place] [address] PCP - General Internal Medicine 04/21/18 documented as of this encounter
== END 2024-08-30 14:02 | disposition home or self-care (01) ==
LOC: HO.HUSH 11:18
PROVIDERS: PCP Internal Medicine; Visit Provider Urology
DX: C61 Malignant neoplasm of prostate (principal); N20.0 Calculus of kidney
CPT/HCPCS: 99213; G2211

== ENCOUNTER → 2024-08-30 11:18 | Outpatient (BNVA) | payer MEDICARE, SELFPAY | PROVIDERS: PCP Internal Medicine; Visit Provider Urology | DX: Z13.89 Encounter for screening for other disorder (principal) ==

== ENCOUNTER 2025-03-01 09:49 | Outpatient (AMB) | payer MEDICARE, SELFPAY ==
--- NOTE | 2025-03-01 09:53 | A.OFFVIS_ITS ---
Intake Visit Reasons: 6M follow up/ PSA Intake Note: Patient is present for M/PSA Urology Medication:DUTASTERIDE Antibiotic Allergy:PENICILLIN Blood Thinner:NONE Labs done :02/15/25 PSA < 0.1 Side Panel Padder Required: No Accompanied by: Self / Same As Patient Allergies penicillin G Allergy (Unknown, Verified 03/01/25 09:54) Unknown HPI Comments Details: Marcelo is a very pleasant male. He is a patient of Dr. Espitia. He is seen for the following urologic conditions - prostate cancer - nephrolithiasis PSA remains low Move to yearly follow-up Spending 4-5 months each year in [facility] were son is located 10/14 PSA 0.1 T 32, 01/14 <0.1 T491, 05/16 <0.01, 08/15 <0.1, 11/15 <0.1, 02/15 <0.1, 08/16 < 0.1, 02/16 <0.1 Prostate cancer: Locally invasive, intermediate risk 07/13 RALP - Early PSA failure 01/2022 XRT with GnRH Rising PSA 01/13- 02/13 GnRH with salvage XRT and dutasteride throughout radiation Imaging - 12/13 PMSA scan. Nodes but no disease within prostate bed Treatment 2000 Gy prostate bed, 4600 Gy [facility] Continue evaluation pT3a pathology with micrometastatic node Genetic testing favorable - Polaris Able to get functional erection without medications. Prostate cancer was diagnosed Dr House 11/09 Diagnosis was reached by 11/09 needle biopsy, for elevated PSA, PSA at diagnosis 6.2, size at TRUS 75gm. The Lucas grade is October 201709/03 cores positive - left base, left mid gland - 60% 4+3 = 7, 70% 3+4 = 7, 40% right apex , 3+3 = 6, 3+3 = 6. TNM Classification of Malignant Tumours (TNM) T1c - Intermediate risk, localized - Group 3 Surgical - [id number] Group 3. The D'Cara (NCCN) risk category is 11/09 , Intermediate Risk (PSA 10-20, Gl 7, T2), localized, Group 3. Initial therapy included 07/13 Primary treatment, Prostatectomy (RRP/Robotic) Dr Tamayo - [facility]. Recent labs included 03/11 , a PSA (prostate-specific antigen) 2.2 01/10 < 0.1, 05/12 < 0.1 07/14 < 0.1, 10/11 < 0.1, 01/11 < 0.1 - 07/15 <0.1, 02/12 0.1, 05/14 0.2, 08/13 0.2, 11/13 0.3 Imaging - 12/13 PMSA scan. Nodes but no disease within prostate bed Nephrolithiasis/Urolithiasis: Stable No stones on imaging. They are here for further evaluation of nephrolithiasis Urolithiasis was diagnosed 2009 The patient previously had kidney stones whose composition w 08/10 left antegrade ureteroscopy with laser lithotripsy. Laboratory investigations include no recent labs 24 Hour urine evaluation none on file. Prior treatment(s) include 08/10 Antegrade Ureteroscopy. Prior imaging includes 09/10 , a renal ultrasound, showing no evidence of stones, bilateral cysts multiple sizes - 08/11 , a renal ultrasound question small stone, bilateral renal cysts up to 5 cm - 03/17 - renal US 3mm right - 03/18 renal ultrasound 3 mm right, bilateral cysts 7 cm [facility] Medical History Prostate cancer High cholesterol Erectile dysfunction after radical prostatectomy Nocturia Weak urinary stream Surgical History History of surgery Review of Systems Const Denies chills and Denies fever(s) Card Reports no additional complaints and Denies syncope Resp Denies cough GI Denies abdominal pain and Denies heartburn Reports as per HPI and Denies change in libido Neuro Denies syncope Psych Denies change in libido Endo Denies change in libido Physical Exam Const General: cooperative, healthy appearing, comfortable and no acute distress Orientation/consciousness: patient oriented x3 HEENT Face and sinus: Yes normal facial exam Mouth: moist mucous membranes Neck Neck: Yes normal visual inspection, Yes full ROM and Yes trachea midline Chest Chest palpation & inspection: normal inspection of the chest Resp Effort & Inspection: normal respiratory effort, able to speak in complete sentences and no respiratory distress GI Inspection: Yes normal to inspection Back/Spine/Pelvis Cervical Spine: normal cervical lordosis Thoracic/Lumbar Spine: thoracic and lumbar spine normal to inspection Skin General skin exam: no rashes or lesions noted Neuro General: patient oriented x3, gait normal, tone normal and moves all extremities Extrem General: Yes normal to inspection and Yes capillary refill normal Assessment & Plan Assessment & Plan (1) Prostate cancer: Comment: Unfavorable intermediate. Initial therapy robotic prostatectomy 07/13 Code(s): C61 - Malignant neoplasm of prostate Category: Medical (2) Nephrolithiasis: Code(s): N20.0 - Calculus of kidney Category: Medical (3) Rising PSA following treatment for malignant neoplasm of prostate: Code(s): R97.21 - Rising PSA following treatment for malignant neoplasm of prostate Category: Medical Plan Twelve month follow-up PSA Orders: Orders Prostate Specific Antigen 12 Months C61 - Malignant neoplasm of prostate Patient Instructions: This note is constructed using voice recognition software. While every effort has been made to ensure accuracy research advisor errors may have been included. Imaging studies, laboratory and physical exam results were discussed and reviewed in detail. No major barriers to patient understanding were identified. An opportunity to ask questions regarding the treatment plan was provided. All questions were answered. The patient expressed understanding and agreement with the above treatment plan. The patient is aware they should contact our office by phone for worsening of their current condition or the appearance of new urologic symptoms. Compliance is encouraged with any medications and followup testing that is ordered. It is a privilege to participate in the urologic care of your patient. If you have any questions or concerns regarding treatment for the above conditions, or other urologic issues, please do not hesitate to contact me. The office telephone contact is [phone]. Sincerely, Dr Bong House MD, [facility] - Urology Compassionate Specialist Care for the Genitourinary System Coding Level of Care Code Est Pt Level 3 (54422) Add On Problem Visit Only Diagnoses Prostate cancer C61 Nephrolithiasis N20.0 Rising PSA following treatment for malignant neoplasm of prostate R97.21
== END 2025-03-01 10:34 | disposition home or self-care (01) ==
LOC: HO.HUSH 09:50
PROVIDERS: PCP Internal Medicine; Visit Provider Urology
DX: C61 Malignant neoplasm of prostate (principal); N20.0 Calculus of kidney; R97.21 Rising PSA following treatment for malignant neoplasm of prostate
CPT/HCPCS: 99213; G2211

== ENCOUNTER → 2025-03-01 09:49 | Outpatient (BNVA) | payer MEDICARE, SELFPAY | PROVIDERS: PCP Internal Medicine; Visit Provider Urology | DX: C61 Malignant neoplasm of prostate (principal) | CPT/HCPCS: 99212 ==